=== PATIENT | female | born 1995 | race Two or more races ===

== ENCOUNTER 2021-09-05 13:11 | Inpatient (IN) | payer MEDICAID, OTHER ==
[~2021-09-05] VITALS: Ht 154.9 cm; Wt 82.1 kg
[2021-09-05 14:46] LABS: HCT 36.8 % (37.0-47.0); HGB 12.3 g/dl (12.5-16.0); MCHC 33.4 g/dL (32.0-36.0); MCV 83.8 fL (78.0-100.0); MPV 12.6 fL (6.0-9.5); RBC 4.39 M/uL (4.20-5.40); RDW 13.7 % (11.5-14.0); WBC 11.5 K/uL (4.0-10.5)
[2021-09-05 14:47] LABS: BILIRUBIN NEGATIVE (NEGATIVE); BLOOD NEGATIVE Ery/uL (NEGATIVE); CLARITY CLEAR (CLEAR); COLOR YELLOW (YELLOW); GLUCOSE (U) NORMAL (NORMAL); LEUKOCYTES 1+ Leu/uL (NEGATIVE); NITRITE NEGATIVE (NEGATIVE); PROTEIN NEGATIVE (NEGATIVE); UROBILINOGEN 0.2 mg/dL (0.2-1.0)
[2021-09-05 14:51] LABS: BARBITURATES NEGATIVE (NEGATIVE); ECSTASY (MDMA) NEGATIVE (NEGATIVE); MARIJUANA (THC) NEGATIVE (NEGATIVE); METHADONE NEGATIVE (NEGATIVE); OPIATES NEGATIVE (NEGATIVE)
[2021-09-05 14:52] LABS: AMPHETAMINES NEGATIVE (NEGATIVE); OXYCODONE NEGATIVE (NEGATIVE)
[2021-09-05 14:54] LABS: BACTERIA 4+; SQUAMOUS EPITHELIAL CELLS 20-50
[2021-09-05 15:24] LABS: ALBUMIN 2.5 g/dL (3.4-5.0); BILIRUBIN - TOTAL 0.3 mg/dL (0.2-1.0); BUN/CREAT RATIO (CALC) 9.1 RATIO; CREATININE 0.44 mg/dL (0.51-0.95); GLOBULIN (CALCULATION) 4.2 g/dL; POTASSIUM 3.8 mmol/L (3.5-5.1); TOTAL PROTEIN 6.7 g/dL (6.4-8.2)
[2021-09-08 05:57] LABS: HCT 31.4 % (37.0-47.0); HGB 10.4 g/dl (12.5-16.0); MCH 28.4 pg (25.0-31.0); MCHC 33.1 g/dL (32.0-36.0); MCV 85.8 fL (78.0-100.0); MPV 11.9 fL (6.0-9.5); RBC 3.66 M/uL (4.20-5.40); RDW 14.1 % (11.5-14.0); WBC 13.3 K/uL (4.0-10.5)
--- NOTE | 2021-09-09 13:28 | NUR ---
ADDENDUM TO SOCIAL ASSESSMENT BY MARY CARTER OF 09/08/21. I WAS REQUESTED TO MEET WITH PATIENT BY DR. KEVIN, DETAIL SUPERVISOR. DR. KEVIN IS ORDERING A SOCIAL WORK VISIT WITH THE FAMILY. SPOKE WITH THE MOTHER, MJ CORDERO VIA AN [employer] SUPERVISOR ID # [id number]. ADVISED THE MOM THAT THE DOCTOR IS ORDERING A MORTGAGE PROCESSING CLERK TO VISIT THE HOME THROUGH THE HANDS PROGRAM THROUGH THE HEALTH DEPT. EXPLAINED TO MOM THROUGH THE [employer] SUPERVISOR THAT [facility]. THE MOM AGREED FOR A MORTGAGE PROCESSING CLERK FROM THE HANDS PROGRAM TO MEET WITH HER IN THE HOME. MOM ALSO AGREED FOR ME TO SPEAK WTTIMI FUENTESNADEZ, . THIS IS THE OF THE FREEDOM GUZMAN. PATIENT RESIDES WITHT AGUSTIN HUERTA FAMILY. ADVISED SALLY HUERTA THAT DR. KEVIN WOULD LIKE A MORTGAGE PROCESSING CLERK TO VISIT WITH THE OM TO OFFER SEVICES THROUGH THE HANDS PROGRAM. SALLY IS AWARE OF THE PROGRAM AND WAS IN AGREEMENT. TC TO THE HANDS PROGRAM. AT THE [facility], [id number]. SPOKE WITH SALLY, ADVISED HER OF THE DOCTOR'S ORDER AND GAVE HER THE REFERRAL REGARDING THIS PATIENT. SALLY ADVISED THAT THEY HAVE CERTIFIED BI-LINGUAL SOCIAL WOKE WHO WILL MAKE THS VISIT TO THE HOME FOR AN EVALUATION. SHE WILL ALSO SPEAK WITH MOM REGARDING THE SERVICES HANDS CAN PROVIDE. ADVISED BREN HARVEY FOR OBS OF THIS INFORMATION.
== END 2021-09-09 15:10 | disposition home or self-care (01) | DRG 787 ==
LOC: FOB 13:11
PROVIDERS: Obstetrics & Gynecology; ADMIT Specialist
PROC: 3E0P7VZ Introduction of Hormone into Female Reproductive, Via Natural or Artificial Opening (ICD-10-PCS; 2021-09-05)
PROC: 3E0DXGC Introduction of Other Therapeutic Substance into Mouth and Pharynx, External Approach (ICD-10-PCS; 2021-09-05)
PROC: 10D00Z1 Extraction of Products of Conception, Low, Open Approach (ICD-10-PCS; principal; 2021-09-07 14:00)
DX: O62.1 Secondary uterine inertia (principal); D62 Acute posthemorrhagic anemia; O63.9 Long labor, unspecified; O42.02 Full-term premature rupture of membranes, onset of labor within 24 hours of rupture; Z37.0 Single live birth; Z3A.40 40 weeks gestation of pregnancy; Z20.822 Contact with and (suspected) exposure to COVID-19; O99.02 Anemia complicating childbirth; D50.9 Iron deficiency anemia, unspecified; O36.63X0 Maternal care for excessive fetal growth, third trimester, not applicable or unspecified; O99.214 Obesity complicating childbirth
CPT/HCPCS: 36415; 80053; 80305; 81001; 86850; 86900; 86901; J0456; J0595; J0690; J1200; J1800; J1885; J2274; J2405; J2540; J7050; J7120; J7121; U0002